=== PATIENT | female | born 1980 | race Two or more races ===

== ENCOUNTER 2023-12-20 15:49 | Emergency (ER) | payer BC ==
[~2023-12-20] VITALS: Ht 147.3 cm; Wt 95.3 kg
[2023-12-20] MEDS ORDERED: KETOROLAC TROMETHAMINE 30 MG VIAL ONE (17:19)
[2023-12-20] MEDS ORDERED: KETOROLAC TROMETHAMINE 30 MG VIAL IM ONE (17:30)
== END 2023-12-20 19:18 | disposition home or self-care (01) ==
LOC: ER 15:50
DX: S82.491A Other fracture of shaft of right fibula, initial encounter for closed fracture (principal); W19.XXXA Unspecified fall, initial encounter; Y93.89 Activity, other specified; Y92.89 Other specified places as the place of occurrence of the external cause; Y99.8 Other external cause status